=== PATIENT | female | born 1980 ===

== ENCOUNTER → 2016-05-29 | Outpatient (CLI) | payer OTHER ==
--- NOTE | 2016-05-30 07:22 | US ---
EXAMINATION TYPE: US transvaginal DATE OF EXAM: 05/29/2016 5:19 PM COMPARISON: NONE CLINICAL HISTORY: N92.0 N94.6 menorhegia. TECHNIQUE: Transvaginal (TV) Date of LMP: 05/27/16 EXAM MEASUREMENTS: Uterus: 9.2 x 4.6 x 5.3 cm Endometrial Stripe: 0.6 cm Right Ovary: 2.6 x1.8 x 1.6 cm Left Ovary: 2.8 x 1.8 x 1.9 cm There may be a hypoechoic cyst on the right ovary measuring approximately 1.2 cm. Follow-up can be pe rformed. 1. Uterus: Anteverted wnl 2. Endometrium: wnl 3. Right Ovary: wnl 4. Left Ovary: wnl 5. Bilateral Adnexa: wnl 6. Posterior cul-de-sac: wnl IMPRESSION: 1. Suspected 1.2 cm cyst right ovary. Follow-up examination in 6 weeks following the next normal mens trual period can be performed.
== END | disposition home or self-care (01) ==
LOC: RADUSWWP 16:48
PROVIDERS: ATTEND Obstetrics & Gynecology
DX: N92.0 Excessive and frequent menstruation with regular cycle (principal); N94.6 Dysmenorrhea, unspecified
CPT/HCPCS: 76830

== ENCOUNTER → 2016-06-21 | Outpatient (CLI) | payer OTHER ==
--- NOTE | 2016-06-21 17:31 | XR ---
EXAMINATION TYPE: XR lumbar spine 2 or 3V DATE OF EXAM: 06/21/2016 5:23 PM COMPARISON: NONE HISTORY: Slip and fall with subsequent back pain. TECHNIQUE: 2 views of the lumbar spine were obtained. FINDINGS: The lumbar spine maintains normal alignment and vertebral body height. Intervertebral disc space are maintained. No evidence of anterolisthesis. No evidence of fracture or dislocation. Rounded density superior to the 12th rib on the right measuring 5 mm may represent incidentally visualized g allbladder or renal calculus or may be located within bowel. IMPRESSION: 1. No evidence of fracture or dislocation. 2. Incidental 5 mm radiopaque density within the right upper abdomen may represent gallstone, renal c alculus, or bowel contents.
== END | disposition home or self-care (01) ==
LOC: RADXRMAIN 17:09
PROVIDERS: ATTEND Emergency Medicine
DX: R93.5 Abnormal findings on diagnostic imaging of other abdominal regions, including retroperitoneum (principal); S33.5XXA Sprain of ligaments of lumbar spine, initial encounter; S30.0XXA Contusion of lower back and pelvis, initial encounter; W01.0XXA Fall on same level from slipping, tripping and stumbling without subsequent striking against object, initial encounter
CPT/HCPCS: 72100